=== PATIENT | female | born 1950 | race Caucasian/White ===

== ENCOUNTER 2021-08-11 07:54 | Outpatient (CLI) | payer MEDICARE, BC | END 2021-08-11 07:55 | disposition home or self-care (01) | LOC: CSHMAMMO 07:54 | PROVIDERS: ATTEND Obstetrics & Gynecology | DX: Z12.31 Encounter for screening mammogram for malignant neoplasm of breast (principal); Z98.890 Other specified postprocedural states; Z91.89 Other specified personal risk factors, not elsewhere classified | CPT/HCPCS: 77063; 77067 ==